=== PATIENT | male | born 1955 | race Caucasian/White ===

== ENCOUNTER → 2018-05-02 | Outpatient (CLI) | payer OTHER ==
[~2018-05-02] MED LIST: ACE500 PO; ALB0.5 INH; ALLO-119 PO; ALLO-2 PO; AMLO-125 PO; AMLO-127 PO; AMLO2.5T78 PO; ATOR40TA24 PO; CEP500 PO; CEPH500T7 PO; ESOM40CA42 PO; IBU200 PO; INDO75CA PO; LANS30CA70 PO; LEV112 PO; LEV125 PO; LEVO137T23 PO; LOR5 PO; LOR75 PO; LOSA100T75 PO; ROSU5TAB8 PO
== END ==
LOC: LAB 08:36
PROVIDERS: ATTEND Nurse Practitioner Primary Care
DX: J09.X2 Influenza due to identified novel influenza A virus with other respiratory manifestations (principal)
CPT/HCPCS: 87502